=== PATIENT | male | born 1950 | race Caucasian/White ===

== ENCOUNTER 2024-09-14 19:47 | Emergency (ER) | payer MEDICARE, OTHER, SELFPAY ==
[2024-09-14 19:53] VITALS: BP 133/80
--- NOTE | 2024-09-14 22:16 | ED.GENMED ---
History of Present Illness
General
Chief Complaint: Head Injury
Source: patient and spouse
Exam Limitations: none
Time Seen by Provider: 09/14/24 22:07
Nursing documentation reviewed up to this point in time: agreed with
History of Present Illness
History of Present Illness:
73-year-old male presents emergency department complaining of hitting his head on a projector and feeling dizzy afterwards. He is taking Eliquis for likely atrial fibrillation. He had some nausea and headache. Denies any chest pain.
Past History
Past History
ED Past Medical History: Arrthythmia (Atrial fib), CVA, HTN, Hypercholesterolemia, NIDDM and Other (Aortic stenosis)
ED Past Surgical History: Cardiac (Open heart with valve replacement) and Urological (Cyst removed from Kidney)
Social History
Tobacco: Non-smoker
Alcohol: None
Personal:
Living: with family
Review of Systems
Review of Systems
Allergies reviewed?: Yes
All Other Systems: Not applicable
Constitutional: Reports no symptoms
EENT: Reports no symptoms
Respiratory: Reports no symptoms
Cardiac: Reports no symptoms; Denies chest pain or syncope
ABD/GI: Reports nausea; Denies abdominal pain
: Reports no symptoms
Musculoskeletal: Reports no symptoms
Skin: Reports no symptoms
Neurological: Reports dizzy and headache
Endocrine: Reports no symptoms
Hematologic/Lymphatic: Reports no symptoms
Psychiatric: Reports no symptoms
Phy Exam
Physical Exam
Physical Exam:
Physical Exam
General: no apparent distress, not acutely ill
Neck: supple. no meningeal signs. normal posterior pharynx
Heart: s1/s2 regular rate and rhythm, no murmur. equal radial
pulses.
HEENT: Pupils equal round reactive to light, EOMI
Lungs: no acute respiratory distress. clear bilaterally
Abdomen: normal bowel sounds. not tender. no CVAT
Neuro: alert and oriented. no focal neurological deficits cranial nerves II through XII intact
Skin: no rash, superficial laceration right forehead
Psychiatric: well kept. interactive and cooperative
Extremities: no edema. no calf tenderness. negative homans. good distal pulses
Course
Orders/Labs/Results
Orders:
Orders
09/14/24 20:00
CT Head W/o Iv Contrast Urgent
Comment:
Reason For Exam: Head injury on eliquis
09/14/24 22:15
Acetaminophen [Tylenol] 650 mg PO NOW STA
09/14/24 23:33
Ondansetron Orally Disint [Zofran Odt (Orally Disintegrating)] 4 mg PO NOW STA
Vital Signs
Initial and Last Documented VS:
Initial Vital Signs
Temp Pulse Resp BP Pulse Ox
98.1 F 92 20 133/80 94
09/14/24 19:53 09/14/24 19:53 09/14/24 19:53 09/14/24 19:53 09/14/24 19:53
Last Documented Vital Signs
Temp Pulse Resp BP Pulse Ox
98.1 F 92 20 133/80 94
09/14/24 19:53 09/14/24 19:53 09/14/24 19:53 09/14/24 19:53 09/14/24 19:53
MDM/Problems Addressed
Differential Diagnosis Includes:
Intracranial hemorrhage, concussion
MDM/Problems Addressed:
73-year-old male with headache dizziness, likely from hitting his head, mild concussion. No loss of consciousness, no signs of intracranial hemorrhage. Patient stable for discharge. Ambulating in ED without difficulty.
Chronic conditions affecting care: Arrhythmia
*Radiology
Radiology exam reviewed: radiology read reviewed (CT head no acute findings)
*Pulse Oximetry
Patient hypoxic: no
*Critical Care Note
Total Time (30-74mins, 75-104mins- exclusive of procedures): Not Applicable
Patient Management
Social determinants of health affecting care: Living situation and Strong social support
Escalation/DeEscalation of care consider admission/obs:
Admit not indicated
ED Attending Note
-
Portions of this chart may have been created with voice recognition software.� Occasional wrong word or��sound alike� substitutions may have occurred due to the inherent limitations of voice recognition software.
Discharge Plan
Departure
Patient Disposition: Home (Routine Discharge)
Date of Disposition: 09/14/24
Time of Disposition: 23:37
Patient with high blood pressure during this ER visit?: Yes
Condition: Good
Discharge Problem:
Concussion
Instructions: Concussion, Adult (DC), BLOOD PRESSURE
Prescriptions:
No Action
metformin 1,000 MG tablet
1,000 mg PO BID
aspirin 81 MG tablet,chewable
81 mg PO DAILY
Eliquis 5 MG tablet
5 mg PO BID Qty: 60 6RF
metoprolol tartrate 50 mg Tablet
50 mg PO BID Qty: 60 0RF
atorvastatin 40 mg Tablet
40 mg PO DAILY
amiodarone 200 mg Tablet
200 mg PO DAILY
Ozempic 0.25 mg or 0.5 mg(2 mg/1.5 mL) Pen Injector
0.25 mg SC QWEEK
Referrals:
Kel Martines MD [Family Provider] - Call in 1-3 days for appt
Interventions
Interventions:
*Risk Screen - Suicide Last Done: 09/14/24 19:53
*General Assessment Last Done: 09/14/24 19:53
*Neglect/Abuse Screening Last Done: 09/14/24 19:53
ED- Fall Risk Assessment Last Done: 09/14/24 22:56
ED- Neurological Assessment Last Done: 09/14/24 22:56
ED-Skin Assessment Last Done: 09/14/24 22:56
Discharge Date and Time
Print Language: LIBYAN
[2024-09-14] MEDS: TYLENOL 650 MG PO (22:19)
[2024-09-14 22:20] VITALS: BMI 32.2
--- NOTE | 2024-09-14 23:28 | EDRN ---
Dr. Escobar in room going over results and plan.
[2024-09-14] MEDS: ZOFRAN ODT (ORALLY DISINTEGRATING) 4 MG PO (23:39)
[2024-09-14 23:50] VITALS: BP 117/75
== END 2024-09-14 23:51 | disposition home or self-care (01) ==
LOC: EMR 19:47
PROVIDERS: EMERGENCY PHYSICIAN Emergency Medicine; FAMILY PHYSICIAN Family Medicine
DX: S06.0XAA Concussion with loss of consciousness status unknown, initial encounter (principal); W22.8XXA Striking against or struck by other objects, initial encounter; I48.91 Unspecified atrial fibrillation; I10 Essential (primary) hypertension; E78.00 Pure hypercholesterolemia, unspecified; E11.9 Type 2 diabetes mellitus without complications; I35.0 Nonrheumatic aortic (valve) stenosis; Z79.01 Long term (current) use of anticoagulants; Z86.73 Personal history of transient ischemic attack (TIA), and cerebral infarction without residual deficits; Z95.2 Presence of prosthetic heart valve
CPT/HCPCS: 99284; 70450

== ENCOUNTER 2024-09-23 11:46 | Emergency (ER) | payer MEDICARE, OTHER, SELFPAY ==
[2024-09-23 11:56] VITALS: BP 118/67
[2024-09-23 12:00] VITALS: BP 118/67
--- NOTE | 2024-09-23 12:15 | ED.GENMED ---
History of Present Illness
<LETICIA Jama - Last Filed: 09/23/24 15:20>
General
Chief Complaint: Head Injury
Source: patient
Exam Limitations: none
Time Seen by Provider: 09/23/24 12:12
Nursing documentation reviewed up to this point in time: agreed with
History of Present Illness
History of Present Illness:
Patient is a 73-year-old male with history of aortic stenosis A-fib hypertension hyperlipidemia who presents here for evaluation. Patient was seen here September 14 after hitting his head. He is on Eliquis and at that time had a CAT scan which was
negative. Patient since then has been very weak. at bedside reports patient has not been able to get out of bed he has no appetite. Today reports 'he just blacked out.' SHe reports he did not fall but he is not acting himself.
He complains of constant headache since. He and he does have a headaches is a vague historian.
She reports no fevers no recent illness. She reports normally he walks with a cane however she has been helping him to the bathroom however he has been injury.
Past History
<LETICIA Jama - Last Filed: 09/23/24 15:20>
Past History
ED Past Medical History: Arrthythmia (Atrial fib), CVA, HTN, Hypercholesterolemia, NIDDM and Other (Aortic stenosis)
ED Past Surgical History: Cardiac (Open heart with valve replacement) and Urological (Cyst removed from Kidney)
Social History
Tobacco: Non-smoker
Alcohol: None
Personal:
Living: with family
Review of Systems
<LETICIA Jama - Last Filed: 09/23/24 15:20>
Review of Systems
Allergies reviewed?: Yes
Other source history: family
All Other Systems: ROS reviewed and negative except as documented in HPI and ROS
Constitutional: Reports fatigue
EENT: Reports no symptoms
Respiratory: Reports no symptoms
Cardiac: Reports other (? syncopal episode today )
ABD/GI: Reports no symptoms
Musculoskeletal: Reports no symptoms
Skin: Reports no symptoms
Neurological: Reports headache
Hematologic/Lymphatic: Reports no symptoms
Psychiatric: Reports no symptoms
Phy Exam
<LETICIA Jama - Last Filed: 09/23/24 15:20>
General Physical Exam
General Presentation: no apparent distress
General age: appears stated age
General Skin: warm and dry
General Habitus: normal
General Mental: alert
General Hydration: appears well hydrated
Cardiovascular Exam
Cardiovascular Exam: regular rate/rhythm, no murmur and normal peripheral pulses
Pulmonary Exam
Pulmonary Exam: lungs clear and no respiratory distress
Neurological Exam
Neurological Exam: alert, oriented x3 and other (slow gait needs assistance )
Musculoskeletal Exam
Musculoskeletal Exam: full ROM
Skin Exam
Skin Exam: normal color and warm/dry
Psychiatric Exam
Psychiatric Exam: normal mood/affect
Course
<LETICIA Jama - Last Filed: 09/23/24 15:20>
Orders/Labs/Results
Orders:
Orders
09/23/24 12:41
Urinalysis Reflex To Culture Urgent
09/23/24 12:47
COVID-19 Antigen Urgent
Source: Nasal Swab
Complete Blood Count/With Diff Urgent
Comprehensive Metabolic Panel Urgent
Influenza A+B Rapid Molecular Urgent
RAMONE Source: Nasal Swab
Specimen Description:
09/23/24 14:33
ECG [Electrocardiogram (*1)] Urgent
Reason for Study: Syncope
EKG- Treatment ONCE
Abnormal Lab Results
09/23/24
12:47
RBC 4.49 L 10^6/uL
(4.70-6.10)
Hct 38.0 L %
(39.0-52.0)
Absolute Lymphs (auto) 0.9 L 10^3/uL
(1.2-3.4)
Lymphocytes % 18.1 L %
(20.5-51.1)
Chloride 109 H mmol/L
(98-107)
BUN 24 H mg/dl
(9-20)
Glucose 190 H mg/dl
(70-99)
Total Protein 6.2 L g/dl
(6.3-8.2)
09/23/24 12:47
09/23/24 12:47
Vital Signs
Initial and Last Documented VS:
Initial Vital Signs
Temp Pulse Resp BP Pulse Ox
98.6 F 90 18 118/67 98
09/23/24 11:56 09/23/24 11:56 09/23/24 11:56 09/23/24 11:56 09/23/24 11:56
Last Documented Vital Signs
Temp Pulse Resp BP Pulse Ox
98.0 F 80 16 134/91 96
09/23/24 12:00 09/23/24 14:07 09/23/24 12:00 09/23/24 14:07 09/23/24 14:07
Churn Driller Helper consulted with Physician
Churn Driller Helper consulted with physician?: Yes
Name of Physician Consulted: anand
<Alberta Ahmadi MD - Last Filed: 09/23/24 15:07>
Orders/Labs/Results
Orders:
Orders
09/23/24 12:41
Urinalysis Reflex To Culture Urgent
09/23/24 12:47
COVID-19 Antigen Urgent
Source: Nasal Swab
Complete Blood Count/With Diff Urgent
Comprehensive Metabolic Panel Urgent
Influenza A+B Rapid Molecular Urgent
RAMONE Source: Nasal Swab
Specimen Description:
09/23/24 14:33
ECG [Electrocardiogram (*1)] Urgent
Reason for Study: Syncope
EKG- Treatment ONCE
Abnormal Lab Results
09/23/24
12:47
RBC 4.49 L 10^6/uL
(4.70-6.10)
Hct 38.0 L %
(39.0-52.0)
Absolute Lymphs (auto) 0.9 L 10^3/uL
(1.2-3.4)
Lymphocytes % 18.1 L %
(20.5-51.1)
Chloride 109 H mmol/L
(98-107)
BUN 24 H mg/dl
(9-20)
Glucose 190 H mg/dl
(70-99)
Total Protein 6.2 L g/dl
(6.3-8.2)
09/23/24 12:47
09/23/24 12:47
Vital Signs
Initial and Last Documented VS:
Initial Vital Signs
Temp Pulse Resp BP Pulse Ox
98.6 F 90 18 118/67 98
09/23/24 11:56 09/23/24 11:56 09/23/24 11:56 09/23/24 11:56 09/23/24 11:56
Last Documented Vital Signs
Temp Pulse Resp BP Pulse Ox
98.0 F 80 16 134/91 96
09/23/24 12:00 09/23/24 14:07 09/23/24 12:00 09/23/24 14:07 09/23/24 14:07
Starrlt;LETICIA Jama - Last Filed: 09/23/24 15:20>
MDM/Problems Addressed
MDM/Problems Addressed:
As documented patient is a 73-year-old male on [facility] presented here after head injury on September 14 had a CAT scan which was negative diagnosed with concussion. Since then patient's and patient report the patient feels very weak continued
headaches in bed not eating and not acting himself. Today she reports patient' blacked out.'
Patient presents awake alert he is able to give history though is giving majority of the history. Language line was offered however refused.
Patient complains of feeling very tired. Patient presents awake alert no acute distress he did ambulate but needed assistance and was slow. His labs are unremarkable his EKG was normal. With concerns for headache and fatigue since initial head
injury with patient being on Eliquis it is recommended the patient have a CAT scan. refuses CAT scan despite multiple conversations. Patient was eval by ED physician who also explained the importance of CAT scan in order to diagnose bleeding.
refused adamantly CAT scan multiple times and only wanted MRI. I did speak with radiology who recommended CAT scan to rule out subdural hematoma or subarachnoid hemorrhage and then if negative MRI would be considered. Given the fact that CAT
scan is appropriate test this was discussed with patient and however they do refuse CAT scan.
At this time patient was signed out AGAINST MEDICAL ADVICE. Patient was given instructions on the importance of returning if any concerns or worsening of symptoms as well as neurology follow-up
<LETICIA Jama - Last Filed: 09/23/24 15:20>
*Radiology
Radiology exam reviewed: radiology read reviewed
*Pulse Oximetry
Patient hypoxic: no
*EKG
Interpreted by ED Provider?: Yes
Heart Rate: 79
Rate: normal
Rhythm: sinus
Ischemia: no ischemia
*Critical Care Note
Total Time (30-74mins, 75-104mins- exclusive of procedures): Not Applicable
ED Attending Note
<LETICIA Jama - Last Filed: 09/23/24 15:20>
-
Portions of this chart may have been created with voice recognition software.� Occasional wrong word or��sound alike� substitutions may have occurred due to the inherent limitations of voice recognition software.
<Alberta Ahmadi MD - Last Filed: 09/23/24 15:07>
ED Attending Note
Patient seen and examined by attending physician: Yes
I performed the substantive portion of visit, reviewed & personally made and approve the management plan that is documented in note by myself or IRVIN.: Yes
ED Attending Note:
73-year-old male who suffered a head injury about a week ago, on anticoagulation, not associated with syncope. He was seen in the emergency department, head scan was unremarkable, and patient went home. Since that time, patient has a variety of
different symptoms including lightheadedness also described as dizziness, but not a sense of spinning, intermittent nausea, mild photophobia, phonophobia, irritability, trouble concentrating, and mild to moderate headache that is temporarily
relieved with Tylenol. Today, patient was sitting on the couch tried to help get him up to go to the bathroom and he seemed to fall back into the chair, which she describes as 'blacked out'. There was no seizure-like activity, incontinence,
confusion. However, given these continued symptoms was very concerned and brought him here understandably. On exam, patient has clear speech, no facial droop, [id number] normal. suspect post concussive syndrome, highly recommend repeat
ct to r/o sah/sdh, etc. Pt and very very strongly refuse, state that they were told by close friends that MRI 'shows more', and less so radiation exposure. I emphasized that ddx would be visualized on CT. We (Jada) contacted radiology with
above concerns, was told CT first, and MR can not be clinically approved given these reasons. Of note, I made it clear to pt and that insurance coverage is NOT a factor in radiology recomnedations/opinions. I have had several different convos
with them, asked to speak to friends or family (declined) , use language line if they feel would help (they decline), etc. They are both very insistent on leaving against medical advice and pursuing care elsewhere, which is very cocnerning to us.
They do reiterate and understand these concerns, risks of or injury/permanent deficit, etc. I again reinforced that if they change their mind, to please rted felicitas.
Discharge Plan
Departure
Patient Disposition: Against Medical Advice
Date of Disposition: 09/23/24
Time of Disposition: 14:21
Condition: Fair
Covid-19: Not Applicable
Discharge Problem:
Headache, Fatigue, Syncope
Instructions: Fatigue (DC), Syncope (Fainting) (DC), Headache, Adult ED
Prescriptions:
No Action
metformin 1,000 MG tablet
1,000 mg PO BID
aspirin 81 MG tablet,chewable
81 mg PO DAILY
Eliquis 5 MG tablet
5 mg PO BID Qty: 60 6RF
metoprolol tartrate 50 mg Tablet
50 mg PO BID Qty: 60 0RF
atorvastatin 40 mg Tablet
40 mg PO DAILY
amiodarone 200 mg Tablet
200 mg PO DAILY
Ozempic 0.25 mg or 0.5 mg(2 mg/1.5 mL) Pen Injector
0.25 mg SC QWEEK
meclizine 25 mg tablet
25 mg PO TID PRN (Reason: dizziness) Qty: 10 0RF
ondansetron HCl 4 mg tablet
4 mg PO Q8H PRN (Reason: nausea and vomiting) 4 Days Qty: 10 0RF
Referrals:
NONE,* [Active] -
Yesi Garcia, DO [Active] - Next open appointment
Activity Restrictions/Additional Instructions:
As discussed it is recommended that you have a CAT scan of your brain to rule out bleeding. Risks of signing out against medical vice and not getting appropriate recommended imaging/care include , paralysis, loss of function, loss of both
cognitive and physical ability.
Please return to the ER for any worsening of symptoms of worsening headache weakness or if any further concerns.
IF YOU CHANGE YOUR MIND, PLEASE COME BACK!!! WE WANT TO TAKE CARE OF YOU!!
As discussed your blood sugar was mildly elevated and based on your blood work you are mildly dehydrated. Please increase fluids.
Close follow-up with family doctor for reevaluation
Interventions
Interventions:
*Risk Screen - Suicide Last Done: 09/23/24 12:03
*Neglect/Abuse Screening Last Done: 09/23/24 12:03
ED- Neurological Assessment Last Done: 09/23/24 12:21
ED-Skin Assessment Last Done: 09/23/24 12:21
Discharge Date and Time
Print Language: MAORI
[2024-09-23 12:57] LABS: % Basophils 0.2 % (0-2); % Eosinophils 1.8 % (0-6); % Immature Granulocytes 0.2 % (0-0.5); % Lymphocytes 18.1 % (20.5-51.1); % Neutrophils 70.7 % (42.2-75.2); Absolute Eosinophils 0.1 10^3/uL (0-0.7); Absolute Lymphocytes 0.9 10^3/uL (1.2-3.4); Absolute Monocytes 0.5 10^3/uL (0.1-0.6); Absolute Neutrophils 3.5 10^3/uL (1.4-6.5); Hemoglobin 13.5 g/dL (13.0-18.0); Mean Corp Hgb Conc. 35.5 g/dL (33.0-37.0); Mean Corpuscular Hgb 30.1 pg (27.0-31.0); Mean Corpuscular Volume 84.6 fL (80.0-94.0); Nucleated Red Blood Cells % 0 % (-); Platelet Count 149 10^3/uL (130-400); Red Blood Cell Count 4.49 10^6/uL (4.70-6.10); Red Cell Dist. Width 12.7 % (11.5-14.5)
[2024-09-23 13:14] LABS: COVID-19 Antigen Negative (Negative)
[2024-09-23 13:15] LABS: ALT (SGPT) 19 U/L (0-50); AST (SGOT) 22 U/L (17-59); Albumin 3.8 g/dl (3.5-5.0); Alkaline Phosphatase 67 U/L (38-126); Blood Urea Nitrogen 24 mg/dl (9-20); Calcium 9.3 mg/dl (8.4-10.2); Carbon Dioxide 23 mmol/L (22-30); Chloride 109 mmol/L (98-107); Glucose 190 mg/dl (70-99); Potassium 4.4 mmol/L (3.5-5.1); Sodium 141 mmol/L (135-145); Total Bilirubin 0.4 mg/dl (0.2-1.3); Total Protein 6.2 g/dl (6.3-8.2); eGFR > 60.00
[2024-09-23 14:07] VITALS: BP 134/91
== END 2024-09-23 15:20 | disposition left against medical advice (07) ==
LOC: EMR 11:46
PROVIDERS: Nurse Practitioner; EMERGENCY PHYSICIAN Emergency Medicine; FAMILY PHYSICIAN Family Medicine
DX: R51.9 Headache, unspecified (principal); R53.83 Other fatigue; R55 Syncope and collapse; I48.91 Unspecified atrial fibrillation; E11.9 Type 2 diabetes mellitus without complications; E78.00 Pure hypercholesterolemia, unspecified; I10 Essential (primary) hypertension; Z79.01 Long term (current) use of anticoagulants; Z95.2 Presence of prosthetic heart valve; Z86.73 Personal history of transient ischemic attack (TIA), and cerebral infarction without residual deficits; Z87.828 Personal history of other (healed) physical injury and trauma
CPT/HCPCS: 99284; 80053; 85025; 87502; 87811; 93005

== ENCOUNTER 2024-12-28 09:44 | Outpatient (RCR) | payer MEDICARE, OTHER, SELFPAY | END 2024-12-28 23:59 | disposition home or self-care (01) | LOC: RST 09:44 | PROVIDERS: ATTENDING PHYSICIAN Specialist; FAMILY PHYSICIAN Family Medicine | DX: F07.81 Postconcussional syndrome (principal); R41.844 Frontal lobe and executive function deficit; R41.841 Cognitive communication deficit; R41.89 Other symptoms and signs involving cognitive functions and awareness; R41.840 Attention and concentration deficit | CPT/HCPCS: 96125; 97110; 97112; 97129; 97130; 97140; 97163; 97530 ==

== ENCOUNTER 2025-01-20 09:05 | Outpatient (RCR) | payer MEDICARE, OTHER, SELFPAY | END 2025-01-20 23:59 | disposition home or self-care (01) | LOC: RST 09:05 | PROVIDERS: ATTENDING PHYSICIAN Specialist; FAMILY PHYSICIAN Family Medicine | DX: F07.81 Postconcussional syndrome (principal); R41.844 Frontal lobe and executive function deficit; H81.90 Unspecified disorder of vestibular function, unspecified ear; R41.841 Cognitive communication deficit; R51.9 Headache, unspecified; R41.840 Attention and concentration deficit; M54.2 Cervicalgia; Z73.6 Limitation of activities due to disability; R41.89 Other symptoms and signs involving cognitive functions and awareness; R26.2 Difficulty in walking, not elsewhere classified; R26.89 Other abnormalities of gait and mobility; M62.81 Muscle weakness (generalized) | CPT/HCPCS: 97110; 97112; 97129; 97130; 97140; 97530 ==